=== PATIENT | female | born 1990 | race Caucasian/White ===

== ENCOUNTER 2016-10-29 06:03 | Inpatient (IN) | payer OTHER ==
[~2016-10-29] VITALS: Ht 165.1 cm; Wt 79.1 kg
[2016-10-29] VITALS (25 sets, daily range): BP systolic 100–151; BP diastolic 55–76; PULSE 64–134; TEMP 97.8–98.5
[2016-10-29 06:56] LABS: BASO % 0.2 % (0.0-2.0); EOS # 0.1 (0.0-0.7); EOS % 0.8 % (0-4.0); GRAN # 9.4 (1.4-6.5); GRAN % 84.4 % (42.2-75.2); HEMOGLOBIN 12.6 g/dl (12.5-16.0); LYMPH # 0.9 (1.2-3.4); LYMPH % 7.7 % (20.0-51.0); MEAN CELL VOLUME 90 fl (80.0-100.0); MEAN CORPUSCULAR HEMOGLOBIN 31 pg (27.0-31.0); MEAN CORPUSCULAR HGB CONC 35 g/dl (33.0-37.0); MEAN PLATELET VOLUME 11.8 fl (7.4-10.4); MONO # 0.7 (0.1-0.6); MONO % 6.4 % (1.7-9.3); PLATELET COUNT 142 K/mm3 (130-400); RED BLOOD COUNT 4.05 M/mm3 (4.10-5.30); WHITE BLOOD COUNT 11.1 K/mm3 (4.8-10.8)
[2016-10-29 06:58] LABS: HEMATOCRIT 36.4 % (37.0-47.0)
[2016-10-29] MEDS ORDERED: PRENATAL1 TA7 PO (06:59)
[2016-10-30 07:40] VITALS: BP 110/70; PULSE 104; TEMP 97.7
[2016-10-30 08:23] LABS: HEMATOCRIT 32.9 % (37.0-47.0); HEMOGLOBIN 11.3 g/dl (12.5-16.0)
[2016-10-30] MEDS ORDERED: IBU600 MG PO ×2 (12:22)
== END 2016-10-30 15:20 | disposition home or self-care (01) | DRG 775 ==
LOC: LDR 06:03 → OB 14:15
PROVIDERS: Obstetrics & Gynecology
PROC: 10E0XZZ Delivery of Products of Conception, External Approach (ICD-10-PCS; principal; 2016-10-29)
PROC: 0KQM0ZZ Repair Perineum Muscle, Open Approach (ICD-10-PCS; 2016-10-29)
DX: O48.0 Post-term pregnancy (principal); O70.1 Second degree perineal laceration during delivery; O77.0 Labor and delivery complicated by meconium in amniotic fluid; Z3A.40 40 weeks gestation of pregnancy; Z37.0 Single live birth
CPT/HCPCS: J2590; J7120

== ENCOUNTER → 2016-11-12 | Outpatient (CLI) | payer OTHER ==
[~2016-11-12] MED LIST: IBU600 MG PO; PRENATAL1 TA7 PO
== END ==
LOC: LAC 10:40
DX: Z39.1 Encounter for care and examination of lactating mother (principal); Z71.89 Other specified counseling